=== PATIENT | male | born 1990 | race Asian ===

== ENCOUNTER 2025-01-12 07:24 | Day surgery (SDC) | payer OTHER, SELFPAY ==
[2025-01-07 07:15] VITALS: BMI 26.7
[2025-01-07 07:18] VITALS: BMI 26.7
[2025-01-12] VITALS (11 sets, daily range): BP systolic 102–136; BP diastolic 68–90; PULSE 68–85; RESP 10–24; TEMP 36.4–36.6; O2SAT 97–100
[2025-01-12] MEDS: Lactated Ringers 1,000 ML 80 ML IVCONT (10:31)
--- NOTE | 2025-01-12 11:36 | P.CONAN_ITS ---
HPI - Anesthesia Eval Consult details Narrative: 34 yo M presenting for lateral and medial rectus eye muscle recession in the left eye [facility] Past Medical History Medical History Epigastric pain Dysphagia GERD (gastroesophageal reflux disease) Family History Family history of problems with anesthesia: No Surgical History Surgical History No pertinent past surgical history History of Problems with Anesthesia: Unobtainable (never had anesthesia) Social History Social History Are you a primary caregiver assisted living to a significant other at home: No Patient Tobacco Use Status: Former Tobacco user Use of substances other than those prescribed or required for medical reasons: No Are you DNR?: No Advance Directives: No Advance Directives Information Provided: Yes Advance Directives on File: No Recently lost weight without trying: No Eating poorly because of decreased appetite: No Nutrition Risks: No Nutritional Risk Meds Allergies Allergy/AdvReac Type Severity Reaction Status Date / Time No Known Allergies Allergy Verified 01/12/25 10:18 Active Medications: Current Medications Fentanyl (Fentanyl Citrate/Pf 100 Mcg/2 Ml Vial) 25 mcg IVPUSH Q5M PRN PRN Reason: Pain, Moderate to Severe (Pain Scale 4-10) Stop: 01/12/25 17:35 Haloperidol Lactate (Haloperidol Lactate 5 Mg/Ml Vial) 1 mg IVPUSH ONCE PRN PRN Reason: intractable nausea Stop: 01/12/25 17:35 Lactated Ringer's (Lr) 1,000 mls @ 80 mls/hr IVCONT .[id number] Last Admin: 01/12/25 10:31 Dose: 80 mls/hr Naloxone HCl (Naloxone Hcl 0.4 Mg/Ml Vial) 0.04 mg IVPUSH Q5M PRN PRN Reason: Excessive sedation or RR < 8 Oxycodone HCl (Oxycodone Hcl Immed Release 5 Mg Tablet) 5 mg PO ONCE PRN PRN Reason: Pain, Moderate(Pain Scale 4-6) if no IV Access Stop: 01/12/25 17:35 Home Medications ?Medication ?Instructions ?Recorded ?Confirmed ?Last Taken ?Type No Known Home Meds 01/07/25 01/07/25 Unknown History Exam Exam Date and Time: 01/12/25 1110 Height,Weight and Vital Signs: Height 5 ft 4.57 in Weight 71.8 kg Last Vital Signs Temp 97.9 F 01/12/25 10:15 Pulse 68 01/12/25 10:15 Resp 16 01/12/25 10:15 BP 123/89 01/12/25 10:15 Pulse Ox 97 01/12/25 10:15 O2 Del Method Room Air 01/12/25 10:15 Airway Mallampati Class: II TM Dist: <=3cm Neck ROM: Full Loose/Missing/Broken Teeth: No (patient denies any loose or broken teeth) Heart: S1S2 Lungs: CTAB Assessment and Plan Assessment Anesthesia Assessment: Anesthesia Plan Discussed and Chart Reviewed Final Anesthetic Review Family History of Problems with Anesthesia: No History of Problems with Anesthesia: Unobtainable (never had anesthesia) NPO: Yes ASA Class: I Final Preanesthetic Review: No Changes in Pt Med Stat, Meds/Allgs Chart Reviewed, Consent Obtained/Reviewed and Anes Risks/Benef Reviewed Patient Risk: Low Procedure Risk: Low Anesthetic Plan Anesthetic Plan: GA and Agree w/ Assess. and Plan Disposition: Standard PACU
--- NOTE | 2025-01-12 12:28 | HO.OPHTHAL ---
Ophthalmology Operative Note Date of Service: 01/12/25 Narrative: Diagnosis exotropia. Postoperative diagnosis same. Procedure 1. Recession of left lateral rectus 7.5 mm 2. Resection of left medial rectus [address] Mcadams. Anesthesia general. Complications none. The patient was brought to the operative room placed under general anesthesia. The left eye was prepped and draped in the usual sterile ophthalmic fashion. Lid speck was placed in the eye and incisions made at bare sclera in the inferotemporal fornix. The lateral rectus was hooked and secured with a double-armed Vicryl suture. It was disinserted from the globe and reattached to a position 7.5 mm behind the original insertion. Conjunctiva was closed with interrupted Vicryl sutures. An incision was then made down to bare sclera in the inferonasal fornix. The medial rectus was hooked and dissected free of its overlying fascial attachments. It was grasped with the insertion with the muscle clamp and a 6 mm resection was marked off with cautery. The resection point was secured with a double-armed Vicryl suture and the distal muscle resected. The resection was then drawn forward to the original insertion with a Vicryl suture. Conjunctiva was closed with interrupted Vicryl sutures. The patient was then awoken from general anesthesia and discharged to postoperative recovery in good condition.
[2025-01-12] MEDS: fentaNYL citrate/PF 100 MCG/2 ML VIAL 25 MCG IVPUSH (12:40)
[2025-01-12] MEDS: oxyCODONE HCl Immed Release 5 MG TABLET PO (13:07)
== END 2025-01-12 13:45 | disposition home or self-care (01) ==
PROVIDERS: Visit Provider Ophthalmology
PROC: (CPT 67312; principal; 2025-01-12 12:00)
DX: H50.112 Monocular exotropia, left eye (principal); K21.9 Gastro-esophageal reflux disease without esophagitis; R13.10 Dysphagia, unspecified; R10.13 Epigastric pain; Z87.891 Personal history of nicotine dependence
CPT/HCPCS: 67312; J0131; J1100; J1596; J1885; J2003; J2405; J2704; J3010